=== PATIENT | female | born 1970 | race Caucasian/White ===

== ENCOUNTER → 2018-09-07 10:07 | Outpatient (CLI) | payer OTHER, SELFPAY ==
--- NOTE | 2018-09-07 | DI.MG.S_ITS ---
BILATERAL DIGITAL SCREENING MAMMOGRAM 3D/2D WITH CAD: 09/07/2018 CLINICAL: Routine screening. Comparison is made to exams dated: 11/23/2016 mammogram, 11/21/2015 mammogram, and 08/04/2012 mammogram - [facility]. The tissue of both breasts is heterogeneously dense. This may lower the sensitivity of mammography. Current study was also evaluated with a Computer Aided Detection (CAD) system. No significant masses, calcifications, or other findings are seen in either breast. There has been no significant interval change. IMPRESSION: NEGATIVE There is no mammographic evidence of malignancy. A 1 year screening mammogram is recommended. This exam was interpreted at Station ID: [id number]. NOTE: For mammograms, a report in lay terms will be sent to the patient. Approximately 15% of breast malignancies will not be visualized mammographically. In the management of a palpable breast mass, a negative mammogram must not discourage biopsy of a clinically suspicious lesion. Electronically Signed By: Sunita taylor/price:09/08/2018 12:23:13 letter sent: Normal Exam ACR BI-RADS Category 1: Negative 3341F
== END ==
PROVIDERS: Family Provider Family Medicine; PCP Family Medicine; Visit Provider Family Medicine
DX: Z12.31 Encounter for screening mammogram for malignant neoplasm of breast (principal)
CPT/HCPCS: 77063; 77067

== ENCOUNTER → 2018-10-05 08:22 | Outpatient (CLI) | payer OTHER, SELFPAY ==
[2018-10-05 08:42] LABS: Add Manual Diff / Slide Review NO; Basophils Absolute Auto 100 /uL (0-100); Eosinophils Absolute Auto 100 /uL (0-450); Eosinophils Percent Auto 1.8 % (2-4); Hematocrit 41.4 % (36-46); Hemoglobin 13.9 g/dL (12.0-16.0); Lymphocytes Absolute Auto 1700 /uL (1100-4500); Mean Corpuscular HGB Conc 33.6 % (30-36); Mean Corpuscular Hemoglobin 30.4 PG (26-34); Mean Corpuscular Volume 90.6 fL (80-100); Monocytes Absolute Auto 500 /uL (0-900); Neutrophils Absolute Auto 3500 /uL (1500-7000); Neutrophils Percent Auto 59.2 % (50-75); Platelet Count 303 X10^3/uL (150-400); Red Blood Cell Count 4.57 X10^6/uL (4.0-5.2); White Blood Cell Count 5.9 X10^3/uL (4.5-11.0)
[2018-10-05 09:07] LABS: Alanine Aminotransferase 21 IU/L (9-52); Albumin 4.4 g/dL (3.5-5.0); Albumin Globulin Ratio 1.5 (1.0-2.8); Alkaline Phosphatase 61 U/L (38-126); Aspartate Aminotransferase 22 IU/L (14-36); BUN Creatinine Ratio 15.7 (6-22); Blood Urea Nitrogen 11 mg/dL (7-17); Calcium 8.8 mg/dL (8.4-10.2); Carbon Dioxide 25 mmol/L (22-32); Chloride 102 mmol/L (98-107); Cholesterol 182 mg/dL (140-199); Estimated Glomerular Filt Rate > 60.0 mL/min (>60); Glucose 94 mg/dL (70-100); HDL Cholesterol 78 mg/dL (40-60); HEMOLYSIS < 15 (0-50); LDL Cholesterol Calculated 91 mg/dL (<100); Potassium 4.4 mmol/L (3.4-5.1); Sodium 137 mmol/L (137-145); Total Protein 7.4 g/dL (6.3-8.2); Triglycerides 67 mg/dL (35-150)
[2018-10-05 09:49] LABS: Thyroid Stimulating Hormone 2.01 uIU/mL (0.47-4.68)
== END ==
PROVIDERS: PCP Family Medicine; Visit Provider Family Medicine
DX: D25.9 Leiomyoma of uterus, unspecified (principal); Z13.0 Encounter for screening for diseases of the blood and blood-forming organs and certain disorders involving the immune mechanism; Z13.1 Encounter for screening for diabetes mellitus; Z13.220 Encounter for screening for lipoid disorders; Z13.29 Encounter for screening for other suspected endocrine disorder; Z00.00 Encounter for general adult medical examination without abnormal findings
CPT/HCPCS: 36415; 80053; 80061; 84443; 85025

== ENCOUNTER → 2020-08-14 17:21 | Outpatient (CLI) | payer OTHER, SELFPAY ==
--- NOTE | 2020-08-14 | DI.MG.S_ITS ---
BILATERAL DIGITAL SCREENING MAMMOGRAM 3D/2D WITH CAD: 08/14/2020 CLINICAL: Routine screening. Comparison is made to exams dated: 09/07/2018 mammogram, 11/23/2016 mammogram, and 11/21/2015 mammogram - [facility]. The tissue of both breasts is heterogeneously dense. This may lower the sensitivity of mammography. Current study was also evaluated with a Computer Aided Detection (CAD) system. No significant masses, calcifications, or other findings are seen in either breast. There has been no significant interval change. IMPRESSION: NEGATIVE There is no mammographic evidence of malignancy. A 1 year screening mammogram is recommended. This exam was interpreted at Station ID: [id number]. NOTE: For mammograms, a report in lay terms will be sent to the patient. Approximately 15% of breast malignancies will not be visualized mammographically. In the management of a palpable breast mass, a negative mammogram must not discourage biopsy of a clinically suspicious lesion. Electronically Signed By: Britton Valdez M.D., jr/price:08/15/2020 15:26:46 letter sent: Normal Exam ACR BI-RADS Category 1: Negative 3341F
== END ==
PROVIDERS: PCP Registered Nurse; Referring Provider Family Medicine; Visit Provider Family Medicine
DX: Z12.31 Encounter for screening mammogram for malignant neoplasm of breast (principal)
CPT/HCPCS: 77063; 77067

== ENCOUNTER → 2020-08-21 11:01 | Outpatient (CLI) | payer OTHER, SELFPAY ==
[2020-08-21 11:55] LABS: Add Manual Diff / Slide Review NO; Basophils Absolute Auto 100 /uL (0-100); Basophils Percent Auto 1.1 % (0-2); Eosinophils Absolute Auto 100 /uL (0-450); Eosinophils Percent Auto 1.3 % (2-4); Hemoglobin 13.2 g/dL (12.0-16.0); Lymphocytes Absolute Auto 1400 /uL (1100-4500); Lymphocytes Percent Auto 28.6 % (25-40); Mean Corpuscular HGB Conc 33.8 % (30-36); Mean Corpuscular Hemoglobin 30.9 PG (26-34); Mean Corpuscular Volume 91.3 fL (80-100); Monocytes Absolute Auto 500 /uL (0-900); Monocytes Percent Auto 10.6 % (3-14); Neutrophils Absolute Auto 2900 /uL (1500-7000); Neutrophils Percent Auto 58.4 % (50-75); Platelet Count 272 X10^3/uL (150-400); Red Blood Cell Count 4.27 X10^6/uL (4.0-5.2); Red Cell Distribution Width 13.1 % (11.6-14.8); White Blood Cell Count 4.9 X10^3/uL (4.5-11.0)
[2020-08-21 12:08] LABS: Alanine Aminotransferase 10 IU/L (<35); Albumin Globulin Ratio 1.3 (1.0-2.8); Alkaline Phosphatase 71 U/L (38-126); Aspartate Aminotransferase 26 IU/L (14-36); BUN Creatinine Ratio 14.3 (6-22); Bilirubin Total 0.7 mg/dL (0.2-1.3); Blood Urea Nitrogen 10 mg/dL (7-17); Carbon Dioxide 31 mmol/L (22-32); Chloride 103 mmol/L (98-107); Cholesterol 180 mg/dL (140-199); Estimated Glomerular Filt Rate > 60.0 mL/min (>60); Globulin 3.1 g/dL (1.7-4.1); Glucose 89 mg/dL (70-100); HDL Cholesterol 93 mg/dL (40-60); HEMOLYSIS < 15 (0-50); LDL Cholesterol Calculated 72 mg/dL (<100); Potassium 4.4 mmol/L (3.4-5.1); Sodium 135 mmol/L (137-145); Total Protein 7.1 g/dL (6.3-8.2); Triglycerides 76 mg/dL (35-150)
[2020-08-21 12:40] LABS: Thyroid Stimulating Hormone 2.61 uIU/mL (0.47-4.68)
== END ==
PROVIDERS: PCP Registered Nurse; Referring Provider Registered Nurse; Visit Provider Registered Nurse
DX: Z00.00 Encounter for general adult medical examination without abnormal findings (principal); D25.9 Leiomyoma of uterus, unspecified; R53.83 Other fatigue
CPT/HCPCS: 36415; 80053; 80061; 84443; 85025

== ENCOUNTER → 2021-04-28 | Outpatient (CLI) | payer OTHER, SELFPAY | PROVIDERS: PCP Registered Nurse; Referring Provider Internal Medicine; Visit Provider Internal Medicine | DX: Z23 Encounter for immunization (principal) | CPT/HCPCS: 90471; 90686 ==

== ENCOUNTER → 2022-12-19 10:50 | Outpatient (CLI) | payer OTHER, SELFPAY | PROVIDERS: Visit Provider Registered Nurse | DX: R10.9 Unspecified abdominal pain (principal) | CPT/HCPCS: 87077; 87086; 87186 ==

== ENCOUNTER → 2023-04-14 08:31 | Outpatient (CLI) | payer OTHER, SELFPAY ==
[2023-04-14 09:53] LABS: Hemoglobin A1C% w Est Avg Glu 5.1 % (4.0-6.0)
[2023-04-14 09:57] LABS: Alanine Aminotransferase 14 IU/L (<35); Albumin 4.2 g/dL (3.5-5.0); Albumin Globulin Ratio 1.5 (1.0-2.8); Alkaline Phosphatase 80 U/L (38-126); Aspartate Aminotransferase 26 IU/L (14-36); BUN Creatinine Ratio 17.6 (6-22); Bilirubin Total 0.6 mg/dL (0.2-1.3); Blood Urea Nitrogen 12 mg/dL (7-17); Calcium 9.5 mg/dL (8.4-10.2); Carbon Dioxide 26 mmol/L (22-32); Chloride 104 mmol/L (98-107); Cholesterol 176 mg/dL (140-199); Estimated Glomerular Filt Rate > 60 mL/min (>60); Globulin 2.8 g/dL (1.7-4.1); Glucose 97 mg/dL (70-100); HDL Cholesterol 79 mg/dL (40-60); HEMOLYSIS < 15 (0-50); LDL Cholesterol Calculated 83 mg/dL (<100); Potassium 4.7 mmol/L (3.4-5.1); Sodium 138 mmol/L (137-145); Triglycerides 70 mg/dL (35-150)
[2023-04-14 10:05] LABS: Add Manual Diff / Slide Review NO; Basophils Absolute Auto 0 /uL (0-100); Basophils Percent Auto 0.7 % (0-2); Eosinophils Absolute Auto 100 /uL (0-450); Eosinophils Percent Auto 1.5 % (2-4); Hematocrit 40.6 % (36-46); Hemoglobin 13.5 g/dL (12.0-16.0); Lymphocytes Absolute Auto 1700 /uL (1100-4500); Lymphocytes Percent Auto 31.6 % (25-40); Mean Corpuscular HGB Conc 33.2 % (30-36); Mean Corpuscular Hemoglobin 30.2 PG (26-34); Mean Corpuscular Volume 90.9 fL (80-100); Monocytes Absolute Auto 500 /uL (0-900); Monocytes Percent Auto 9.1 % (3-14); Neutrophils Absolute Auto 3000 /uL (1500-7000); Neutrophils Percent Auto 57.1 % (50-75); Platelet Count 326 X10^3/uL (150-400); Red Blood Cell Count 4.47 X10^6/uL (4.0-5.2); Red Cell Distribution Width 13.3 % (11.6-14.8); White Blood Cell Count 5.3 X10^3/uL (4.5-11.0)
[2023-04-14 10:20] LABS: Vitamin D 25 Hydroxy (D3) 35.2 ng/mL (30.0-100.0)
[2023-04-14 10:25] LABS: TSH w/ Reflex to FT4 2.46 uIU/mL (0.47-4.68)
[2023-04-14 16:18] LABS: HIV 1 & 2 Ab/Ag 4th Gen Combo NEGATIVE (NEGATIVE); Hep C Virus Ab w/Reflex Quant NEGATIVE s/c (NEGATIVE)
== END ==
PROVIDERS: PCP Family Medicine; Referring Provider Family Medicine; Visit Provider Family Medicine
DX: Z00.00 Encounter for general adult medical examination without abnormal findings (principal); Z11.59 Encounter for screening for other viral diseases; R63.5 Abnormal weight gain; Z11.4 Encounter for screening for human immunodeficiency virus [HIV]
CPT/HCPCS: 36415; 80053; 80061; 82306; 83036; 84443; 85025; 86803; 87389

== ENCOUNTER → 2023-04-20 19:51 | Outpatient (CLI) | payer OTHER, SELFPAY | PROVIDERS: PCP Family Medicine; Referring Provider Family Medicine; Visit Provider Family Medicine | DX: Z23 Encounter for immunization (principal) | CPT/HCPCS: 90471; 90686 ==

== ENCOUNTER 2023-04-23 09:55 | Emergency (ER) | payer OTHER, SELFPAY ==
[2023-04-23] VITALS (39 sets, daily range): BP systolic 135–199; BP diastolic 76–96; PULSE 60–85; RESP 14–34; TEMP 36.7; O2SAT 95–100; BMI 27.1
--- NOTE | 2023-04-23 10:12 | DI.RAD.S_ITS ---
PROCEDURE: XR CHEST 1V INDICATIONS: chest pain TECHNIQUE: One view of the chest was acquired. COMPARISON: None. FINDINGS: Surgical changes and devices: None. Lungs and pleura: Lungs are clear. No pleural effusions or pneumothorax. Mediastinum: The cardiac contours are within normal limits. The aorta demonstrates calcification and tortuosity. Bones and chest wall: No suspicious bony lesions. Overlying soft tissues appear unremarkable. IMPRESSION: Portable chest within normal limits for age. Dictated by: Cristino Silva M.D. on 04/23/2023 at 9:29 Approved by: Cristino Silva M.D. on 04/23/2023 at 9:29
[2023-04-23] MEDS: ASPIRIN 81 MG CHEW TAB 324 MG PO (10:20)
[2023-04-23 10:57] LABS: Add Manual Diff / Slide Review NO; Basophils Absolute Auto 0 /uL (0-100); Basophils Percent Auto 0.8 % (0-2); Eosinophils Absolute Auto 0 /uL (0-450); Eosinophils Percent Auto 0.5 % (2-4); Hematocrit 40.8 % (36-46); Hemoglobin 13.7 g/dL (12.0-16.0); Lymphocytes Absolute Auto 1300 /uL (1100-4500); Lymphocytes Percent Auto 23.7 % (25-40); Mean Corpuscular HGB Conc 33.5 % (30-36); Mean Corpuscular Hemoglobin 30.6 PG (26-34); Mean Corpuscular Volume 91.3 fL (80-100); Monocytes Absolute Auto 600 /uL (0-900); Monocytes Percent Auto 10.5 % (3-14); Neutrophils Absolute Auto 3500 /uL (1500-7000); Neutrophils Percent Auto 64.5 % (50-75); Platelet Count 303 X10^3/uL (150-400); Red Blood Cell Count 4.46 X10^6/uL (4.0-5.2); Red Cell Distribution Width 13.1 % (11.6-14.8); White Blood Cell Count 5.4 X10^3/uL (4.5-11.0)
[2023-04-23 11:02] LABS: INR 0.9 (0.9-1.3); Prothrombin Time 10.4 SECONDS (10.1-12.7)
[2023-04-23 11:04] LABS: PTT Partial Thromboplastin Tim 31 SECONDS (26-36)
[2023-04-23 11:07] LABS: Alanine Aminotransferase 14 IU/L (<35); Albumin 4.4 g/dL (3.5-5.0); Albumin Globulin Ratio 1.4 (1.0-2.8); Alkaline Phosphatase 82 U/L (38-126); Aspartate Aminotransferase 27 IU/L (14-36); Bilirubin Total 0.4 mg/dL (0.2-1.3); Blood Urea Nitrogen 11 mg/dL (7-17); Calcium 9.5 mg/dL (8.4-10.2); Carbon Dioxide 27 mmol/L (22-32); Chloride 104 mmol/L (98-107); Creatine Kinase 89 U/L (30-135); Estimated Glomerular Filt Rate > 60 mL/min (>60); Globulin 3.1 g/dL (1.7-4.1); Glucose 138 mg/dL (70-100); HEMOLYSIS < 15 (0-50); Lipase 65 U/L (23-300); Magnesium 2.2 mg/dL (1.6-2.3); Potassium 4.1 mmol/L (3.4-5.1); Sodium 137 mmol/L (137-145); Total Protein 7.5 g/dL (6.3-8.2)
[2023-04-23 11:09] LABS: D Dimer 344 ng/ml (<500)
[2023-04-23 11:18] LABS: Troponin I < 0.012 ng/mL (0.01-0.034)
[2023-04-23 14:20] LABS: Troponin I 0.493 ng/mL (0.01-0.034)
--- NOTE | 2023-04-23 14:29 | ED.CHESTPAIN ---
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 She is never had similar findings there is no cardiac history in her family, typically her blood pressure is quite low she is on no medication and exercises regularly has not noticed any chest pain or exertional dyspnea recently. No nausea, vomiting or diarrhea Related Data Home Medications Medication Instructions Recorded Confirmed No Known Home Medications 04/23/23 04/23/23 Allergies Allergy/AdvReac Type Severity Reaction Status Date / Time No Known Drug Allergies Allergy Verified 04/23/23 10:15 Review of Systems Review of Systems Narrative: Pertinent positive and negative findings as per HPI Patient History Medical History Vaginal delivery Family History Father Age: 83 High cholesterol Grandfather Colon cancer Grandmother Cancer Mother Age: 81 High cholesterol Grandfather Heart disease Grandmother Stroke Social History Smoking Status: Never smoker second hand exposure: No alcohol intake: current (2x per week) substance use type: does not use Smoking Status: Never smoker alcohol intake frequency: 0-2 drinks per day Substance Use Type: does not use Exam Initial Vital Signs Initial Vital Signs: Vital Signs Temperature 98.1 F 04/23/23 10:05 Pulse Rate 76 04/23/23 10:05 Respiratory Rate 14 04/23/23 10:05 Blood Pressure 199/94 H 04/23/23 10:05 Pulse Oximetry 99 04/23/23 10:05 Oxygen Delivery Method Room Air 04/23/23 10:05 General: Healthy appearing, in no acute distress. Able to give a complete and coherent history. Well-nourished well-developed HEENT: Moist mucous membranes, normal sclera with reactive pupils, Respiratory: Lungs are clear to auscultation, no wheezing no rales no rhonchi. Full and symmetrical air movement Cardiac: Regular rate and rhythm no murmurs no bruits Abdomen: Soft, nontender, good bowel tones, no flank pain Skin: Warm and dry, no rashes Neurologic: Grossly neurologically intact with no obvious asymmetries or abnormalities Extremities: No trauma, well perfused Psych: Cooperative, appropriate insight and affect Course Orders Ordered: ED Orders 04/23/23 10:12 XR chest 1V Stat EKG-12 Lead Stat 04/23/23 10:53 Complete Blood Count AUTO DIFF Stat Comprehensive Metabolic Panel Stat D Dimer Stat Lipase Stat Magnesium Stat PTT Partial Thromboplastin Ulices Stat Prothrombin Time INR Stat Troponin & CK Cardiac Panel Stat 04/23/23 13:00 EKG-12 Lead Stat 04/23/23 13:45 Troponin I Stat 04/23/23 14:28 COVID19 -Nasal RAPID Stat 04/23/23 16:54 EKG-12 Lead Stat 04/23/23 17:00 Trop I [Troponin I] Stat 04/23/23 21:00 PTT Partial Thromboplastin Ulices Stat Heparin Sodium/Dextrose (Heparin Drip) 25,000 unit in 500 mls @ 16.112 mls/hr IV CONT TOY; Protocol Last Admin: 04/23/23 15:10 Dose: 12 units/kg/hr, 16.112 mls/hr Documented By: PATEL Co-signed By: RAJ Nitroglycerin (Nitroglycerin) 50 mg in 250 mls @ 1.5 mls/hr IV TITRATE TOY; Protocol Last Titration: 04/23/23 16:35 Dose: 15 mcg/min, 4.5 mls/hr Documented By: Titration: 04/23/23 15:49 Dose: 10 mcg/min, 3 mls/hr Documented By: Admin: 04/23/23 15:29 Dose: 5 mcg/min, 1.5 mls/hr Documented By: JAKUB Morphine Sulfate (Morphine 2 Mg/Ml Inj) 2 mg IV Q2HR PRN PRN Reason: Pain, Moderate (4-6) Last Admin: 04/23/23 16:50 Dose: 2 mg Documented By: PATEL Discontinued Medications Acetaminophen (Acetaminophen 325 Mg Tablet) 650 mg PO NOW ONE Stop: 04/23/23 16:34 Last Admin: 04/23/23 16:49 Dose: 650 mg Documented By: PATEL Aspirin (Aspirin 81 Mg Chew Tab) 324 mg PO NOW ONE Stop: 04/23/23 10:13 Last Admin: 04/23/23 10:20 Dose: 324 mg Documented By: JAKUB Heparin Sodium (Porcine) (Heparin 5,000 Unit/Ml Vial) 5,000 unit IV NOW ONE Stop: 04/23/23 14:30 Last Admin: 04/23/23 15:20 Dose: Not Given Documented By: JAKUB Heparin Sodium (Porcine) (Heparin 5,000 Unit/Ml Vial) 4,000 unit IV NOW ONE Stop: 04/23/23 15:02 Last Admin: 04/23/23 15:11 Dose: 4,000 unit Documented By: PATEL Nitroglycerin (Nitroglycerin 0.4 Mg Sl Tab) 0.4 mg SL [id number] PRN PRN Reason: Chest Pain Nitroglycerin (Nitroglycerin Oint 1 Inch/Gm Oint...G.) 0.5 inch TOP NOW ONE Stop: 04/23/23 14:44 Last Admin: 04/23/23 15:12 Dose: 0.5 inch Documented By: PATEL Vital Signs Vital signs: Vital Signs - 8 hr 04/23/23 10:05 04/23/23 10:10 04/23/23 10:15 Temperature 98.1 F Pulse Rate 76 73 Respiratory Rate 14 21 Blood Pressure 199/94 H 189/86 H Pulse Oximetry 99 100 Oxygen Delivery Method Room Air 04/23/23 10:15 04/23/23 10:30 04/23/23 10:30 Temperature Pulse Rate 76 78 Respiratory Rate 21 20 Blood Pressure 170/83 H Pulse Oximetry 100 99 Oxygen Delivery Method 04/23/23 10:45 04/23/23 10:58 04/23/23 10:58 Temperature Pulse Rate 78 78 Respiratory Rate 34 H 28 H Blood Pressure 163/96 H Pulse Oximetry 100 100 Oxygen Delivery Method 04/23/23 11:00 04/23/23 11:00 04/23/23 11:15 Temperature Pulse Rate 77 76 Respiratory Rate 19 19 Blood Pressure 150/92 H Pulse Oximetry 100 99 Oxygen Delivery Method Room Air 04/23/23 11:15 04/23/23 11:30 04/23/23 11:30 Temperature Pulse Rate 76 Respiratory Rate 18 Blood Pressure 153/86 H 153/87 H Pulse Oximetry 99 Oxygen Delivery Method 04/23/23 11:45 04/23/23 11:45 04/23/23 12:00 Temperature Pulse Rate 72 Respiratory Rate 16 Blood Pressure 147/85 H 151/86 H Pulse Oximetry 99 Oxygen Delivery Method 04/23/23 12:00 04/23/23 12:15 04/23/23 12:15 Temperature Pulse Rate 68 71 Respiratory Rate 17 19 Blood Pressure 155/81 H Pulse Oximetry 99 98 Oxygen Delivery Method Room Air Room Air 04/23/23 12:30 04/23/23 12:30 04/23/23 12:45 Temperature Pulse Rate 64 Respiratory Rate 17 Blood Pressure 155/84 H 139/80 Pulse Oximetry 96 Oxygen Delivery Method 04/23/23 12:45 04/23/23 13:00 04/23/23 13:00 Temperature Pulse Rate 60 65 Respiratory Rate 14 14 Blood Pressure 146/85 H Pulse Oximetry 98 99 Oxygen Delivery Method Room Air 04/23/23 13:15 04/23/23 13:15 04/23/23 13:30 Temperature Pulse Rate 64 Respiratory Rate 15 Blood Pressure 145/85 H 135/79 Pulse Oximetry 98 Oxygen Delivery Method 04/23/23 13:30 04/23/23 13:45 04/23/23 13:45 Temperature Pulse Rate 64 73 Respiratory Rate 17 20 Blood Pressure 142/84 H Pulse Oximetry 96 97 Oxygen Delivery Method 04/23/23 14:00 04/23/23 14:00 04/23/23 14:15 Temperature Pulse Rate 66 Respiratory Rate 16 Blood Pressure 155/88 H 151/85 H Pulse Oximetry 99 Oxygen Delivery Method 04/23/23 14:15 04/23/23 14:30 04/23/23 14:30 Temperature Pulse Rate 69 80 Respiratory Rate 17 31 H Blood Pressure 155/91 H Pulse Oximetry 99 99 Oxygen Delivery Method Room Air 04/23/23 14:45 04/23/23 14:45 04/23/23 15:00 Temperature Pulse Rate 83 Respiratory Rate 18 Blood Pressure 155/84 H 157/77 H Pulse Oximetry 97 Oxygen Delivery Method Room Air 04/23/23 15:00 04/23/23 15:12 04/23/23 15:15 Temperature Pulse Rate 83 77 77 Respiratory Rate 17 24 Blood Pressure 157/77 H Pulse Oximetry 98 Oxygen Delivery Method 04/23/23 15:16 04/23/23 15:16 04/23/23 15:30 Temperature Pulse Rate 83 Respiratory Rate 31 H Blood Pressure 155/89 H 156/85 H Pulse Oximetry 100 Oxygen Delivery Method 04/23/23 15:30 04/23/23 15:45 04/23/23 15:45 Temperature Pulse Rate 74 77 Respiratory Rate 17 22 Blood Pressure 156/87 H Pulse Oximetry 97 97 Oxygen Delivery Method 04/23/23 15:50 04/23/23 16:00 04/23/23 16:00 Temperature Pulse Rate 82 73 Respiratory Rate 14 16 Blood Pressure 159/87 H Pulse Oximetry 98 Oxygen Delivery Method Room Air 04/23/23 16:15 04/23/23 16:15 04/23/23 16:30 Temperature Pulse Rate 81 82 Respiratory Rate 18 18 Blood Pressure 149/76 H Pulse Oximetry 97 95 Oxygen Delivery Method Room Air Room Air 04/23/23 16:30 04/23/23 16:45 04/23/23 16:45 Temperature Pulse Rate 85 Respiratory Rate 18 Blood Pressure 146/79 H 145/78 H Pulse Oximetry 95 Oxygen Delivery Method Room Air 04/23/23 17:00 04/23/23 17:15 04/23/23 17:30 Temperature Pulse Rate 81 82 79 Respiratory Rate 18 Blood Pressure Pulse Oximetry 98 99 98 Oxygen Delivery Method MDM - Chest Pain Lab Data 04/23/23 10:53 04/23/23 10:53 Labs: Lab Results 04/23/23 04/23/23 04/23/23 Range/Units 10:53 13:45 14:28 WBC 5.4 (4.5-11.0) X10^3/uL RBC 4.46 (4.0-5.2) X10^6/uL Hgb 13.7 (12.0-16.0) g/dL Hct 40.8 (36-46) % MCV 91.3 (80-100) fL MCH 30.6 (26-34) PG MCHC 33.5 (30-36) % RDW 13.1 (11.6-14.8) % Plt Count 303 (150-400) X10^3/uL Neut % (Auto) 64.5 (50-75) % Lymph % (Auto) 23.7 L (25-40) % Callaway % (Auto) 10.5 (3-14) % Eos % (Auto) 0.5 L (2-4) % Baso % (Auto) 0.8 (0-2) % Neut # (Auto) 3500 (6129-5305) /uL Lymph # (Auto) 1300 (9587-5990) /uL Callaway # (Auto) 600 (0-900) /uL Eos # (Auto) 0 (0-450) /uL Baso # (Auto) 0 (0-100) /uL PT 10.4 (10.1-12.7) SECONDS INR 0.9 (0.9-1.3) APTT 31 (26-36) SECONDS D-Dimer 344 (<500) ng/ml Sodium 137 (137-145) mmol/L Potassium 4.1 (3.4-5.1) mmol/L Chloride 104 (98-107) mmol/L Carbon Dioxide 27 (22-32) mmol/L BUN 11 (7-17) mg/dL Creatinine 0.61 (0.52-1.04) mg/dL Estimated GFR > 60 (>60) mL/min BUN/Creatinine Ratio 18.0 (6-22) Glucose 138 H (70-100) mg/dL Calcium 9.5 (8.4-10.2) mg/dL Magnesium 2.2 (1.6-2.3) mg/dL Total Bilirubin 0.4 (0.2-1.3) mg/dL AST 27 (14-36) IU/L ALT 14 (<35) IU/L Alkaline Phosphatase 82 (38-126) U/L Total Creatine Kinase 89 (30-135) U/L Troponin I < 0.012 0.493 H* (0.01-0.034) ng/mL Total Protein 7.5 (6.3-8.2) g/dL Albumin 4.4 (3.5-5.0) g/dL Globulin 3.1 (1.7-4.1) g/dL Albumin/Globulin Ratio 1.4 (1.0-2.8) Lipase 65 (23-300) U/L SARS-CoV-2 (PCR) Negative (Negative) 04/23/23 Range/Units 17:00 WBC (4.5-11.0) X10^3/uL RBC (4.0-5.2) X10^6/uL Hgb (12.0-16.0) g/dL Hct (36-46) % MCV (80-100) fL MCH (26-34) PG MCHC (30-36) % RDW (11.6-14.8) % Plt Count (150-400) X10^3/uL Neut % (Auto) (50-75) % Lymph % (Auto) (25-40) % Callaway % (Auto) (3-14) % Eos % (Auto) (2-4) % Baso % (Auto) (0-2) % Neut # (Auto) (9195-4950) /uL Lymph # (Auto) (5741-2549) /uL Callaway # (Auto) (0-900) /uL Eos # (Auto) (0-450) /uL Baso # (Auto) (0-100) /uL PT (10.1-12.7) SECONDS INR (0.9-1.3) APTT (26-36) SECONDS D-Dimer (<500) ng/ml Sodium (137-145) mmol/L Potassium (3.4-5.1) mmol/L Chloride (98-107) mmol/L Carbon Dioxide (22-32) mmol/L BUN (7-17) mg/dL Creatinine (0.52-1.04) mg/dL Estimated GFR (>60) mL/min BUN/Creatinine Ratio (6-22) Glucose (70-100) mg/dL Calcium (8.4-10.2) mg/dL Magnesium (1.6-2.3) mg/dL Total Bilirubin (0.2-1.3) mg/dL AST (14-36) IU/L ALT (<35) IU/L Alkaline Phosphatase (38-126) U/L Total Creatine Kinase (30-135) U/L Troponin I 2.700 H* (0.01-0.034) ng/mL Total Protein (6.3-8.2) g/dL Albumin (3.5-5.0) g/dL Globulin (1.7-4.1) g/dL Albumin/Globulin Ratio (1.0-2.8) Lipase (23-300) U/L SARS-CoV-2 (PCR) (Negative) MDM Narrative Medical decision making narrative: CC: Acute chest pain Complicating co-morbidities: None, no medications otherwise healthy with regular exercise Data collected from: patient, Differential considered:Musculoskeletal pain, pleurisy, acute coronary syndrome Exam documented above, pertinent findings include: Completely benign exam. Chest pain is not reproducible with palpation Lab Test results independently reviewed as above. Pertinent findings: D-dimer is unremarkable PT and PTT your unremarkable CBC is unremarkable Chemistries are reassuring Lipase is unremarkable Initial troponin is undetectable, repeat troponin is elevated at 0.493 Independently reviewed EKG Sinus rhythm at a rate of 68 nonspecific STT wave changes, no acute ischemia, leftward axis Repeat EKG is showing some evolving changes with flipped T-waves in lead 3 and V3 through 6. This is changed from the initial EKG Imaging studies independently reviewed: Chest x-ray has no significant abnormalities Treatments:nitro sl, heparin IV, nitro paste, IV nitro Re-evaluations:3pm + trop and evolving EKG changes are discussed with the patient Discussion: Otherwise healthy 53-year-old woman with acute chest pain while at work this morning. Initial EKG with mild STT wave changes but no acute ischemia initial troponin is unremarkable however repeat troponin is significantly elevated at 0.493. Heparin is started and because she is still having some residual pain nitro paste is placed. She was given aspirin with initial presentation. Of note is the Tdap and flu immunizations 48 hours ago. Care is reviewed with admitting hospitalist Dr. Pepe Nielsen and patient will be transferred around 6:00 p.m. this evening. Third troponin returned at 2.5. Dr. Cantu is updated. Patient is transferred to [facility] on 15 mics of nitroglycerin, pain-free after a single dose of morphine and heparin drip running. Critical Care Time Critical Care Time Critical Care Time: Yes Total Critical Care Time: 36 Attestation: Critical care time is separate from other billable procedures. There is a high probability of a significant, sudden or life-threatening deterioration that requires my full and direct attention, intervention and personal management. This critical care time includes consultation with family and other consulting doctors, review of records, and interpretation of data from labs, EKGs and imaging as well as managements of escalating chest pain with IV heparin and IV nitroglycerin Discharge Plan Departure Patient Disposition: [facility] Clinical Impression: Unstable angina pectoris Prescriptions: No Action No Known Home Medications Referrals: Britton Lea MD [Primary Care Provider] -
[2023-04-23 14:46] LABS: COVID19 -Nasal RAPID Negative (Negative)
[2023-04-23] MEDS: HEPARIN DRIP 25,000 UNIT/500 ML IV.SOLN 16.112 UNIT IV (15:10)
[2023-04-23] MEDS: HEPARIN 5,000 UNIT/ML VIAL 4000 UNIT IV (15:11)
[2023-04-23] MEDS: NITROGLYCERIN OINT 1 INCH/GM OINT...G. 0.5 INCH TOP (15:12)
[2023-04-23] MEDS: NITROGLYCERIN 50 MG/250 ML INFUS..BTL IV (15:29)
--- NOTE | 2023-04-23 15:55 | PC.NURSE ---
Accepted to [facility]: Pt agrees w/ plan of care.
[2023-04-23] MEDS: ACETAMINOPHEN 325 MG TABLET 650 MG PO (16:49)
[2023-04-23] MEDS: MORPHINE 2 MG/ML INJ IV (16:50)
[2023-04-23 17:57] LABS: Creatine Kinase 310 U/L (30-135)
--- NOTE | 2023-04-23 18:06 | PC.NURSE ---
Heparin continued at 16ml/hr and Nitro Continued at 15mkg/min in transport with [facility].
== END 2023-04-23 18:15 | disposition short-term general hospital (02) ==
PROVIDERS: Emergency Provider Emergency Medicine; PCP Family Medicine
DX: I20.0 Unstable angina (principal); R07.9 Chest pain, unspecified; Z20.822 Contact with and (suspected) exposure to COVID-19
CPT/HCPCS: 36415; 71045; 80053; 82550; 83690; 83735; 84484; 85025; 85379; 85610; 85730; 87635; 93005; 96365; 96366; 96368; 96375; 99285; 99291; C9803; J1644; J2270

== ENCOUNTER → 2023-05-16 15:42 | Outpatient (CLI) | payer OTHER, SELFPAY ==
--- NOTE | 2023-05-16 15:43 | DI.MG.S_ITS ---
BILATERAL DIGITAL SCREENING MAMMOGRAM 3D/2D WITH CAD: 05/16/2023 CLINICAL: Routine screening. Comparison is made to exams dated: 08/14/2020 mammogram, 09/07/2018 mammogram, and 11/23/2016 mammogram - [facility]. Both breasts are heterogeneously dense, which may obscure small masses (category c / 51-75% glandular tissue). Current study was also evaluated with a Computer Aided Detection (CAD) system. No significant masses, calcifications, or other findings are seen in either breast. There has been no significant interval change. IMPRESSION: NEGATIVE There is no mammographic evidence of malignancy. A 1 year screening mammogram is recommended. Based on the Tyrer Cuzick model (a risk assessment model) the patient's lifetime risk is 12.6% and her 10 year risk is 3.3%. According to the ACR, ACS, and NCCN guidelines, an annual breast MRI exam along with mammogram is recommended if the patient's lifetime risk is 20% or greater. This exam was interpreted at Station ID: [id number]. NOTE: For mammograms, a report in lay terms will be sent to the patient. Approximately 15% of breast malignancies will not be visualized mammographically. In the management of a palpable breast mass, a negative mammogram must not discourage biopsy of a clinically suspicious lesion. Electronically Signed By: Paul krueger/price:05/17/2023 09:16:28 letter sent: Normal Exam ACR BI-RADS Category 1: Negative 3341F
== END ==
PROVIDERS: PCP Family Medicine; Referring Provider Family Medicine; Visit Provider Family Medicine
DX: Z12.31 Encounter for screening mammogram for malignant neoplasm of breast (principal)
CPT/HCPCS: 77063; 77067

== ENCOUNTER 2023-07-05 09:55 | Day surgery (SDC) | payer OTHER, SELFPAY ==
--- NOTE | 2023-07-05 | PATH_ITS ---
[facility] Accession Number: [id number] No. of containers..02 Tissue . 01 Material submitted: . PART A: colon - SIGMOID POLYP PART B: colon - DESCENDING COLON POLYP . 01 Diagnosis: A. COLON, SIGMOID POLYP, BIOPSY: - HYPERPLASTIC POLYP, AND BENIGN LYMPHOID AGGREGATE. - NEGATIVE FOR DYSPLASIA OR MALIGNANCY. -- B. COLON, DESCENDING POLYP, BIOPSY: - HYPERPLASTIC POLYP. - NEGATIVE FOR DYSPLASIA OR MALIGNANCY. TXN 07/14/2023 1334 Local . 01 Electronically signed: . Tawcarolee Morris MD, Pathologist NPI- [id number] . 01 Gross description: . Part A: SIGMOID POLYP: Received in formalin is 2 fragment(s) of mosquera, soft tissue measuring 0.5 x 0.2 x 0.1 cm to 0.4 x 0.2 x 0.1 cm submitted entirely in 1 cassette(s) Part B: DESCENDING COLON POLYP: Received in formalin is 1 fragment(s) of mosquera, soft tissue measuring 0.3 x 0.2 x 0.1 cm submitted entirely in 1 cassette(s) /AAY 07/07/2023 0116 Local . 01 Pathologist provided ICD-10: Z12.11 . 01 CPT . 855127, [id number] Specimen Comment: A courtesy copy of this report has been sent to [phone] Performed at: 01 [facility] [address] [place] [address], [place], [place] [id number] MD Tommy Gong MD Phone: [phone]
--- NOTE | 2023-07-05 10:29 | P.HP_ITS ---
History of Present Illness History of Present Illness Date Patient Seen: 07/05/23 Time Patient Seen: 10:29 Chief complaint: Screening Colonoscopy Narrative: 53-year-old woman here for screening colonoscopy. No previous colonoscopy. No family history of intestinal malignancy. She had a NSTEMI 2 months ago did not receive a stent is on Plavix and beta blockade. No chest pain or shortness of breath with exertion. No abdominal concerns including pain, unintentional weight loss blood per rectum. [facility] Medical History Chicken pox (~1975) NSTEMI (non-ST elevated myocardial infarction) Vaginal delivery Family History (Updated 06/20/23 @ 19:55 by Sera Singer) Father Age: 83 High cholesterol Hypertension Grandfather Stomach cancer Grandmother Colon cancer Mother Age: 81 High cholesterol Parkinson's disease Grandfather Heart disease Grandmother Stroke Social History Smoking Status: Never smoker second hand exposure: No alcohol intake: current (2x per week) substance use type: does not use Meds Home Medications and Allergies Home Medications Medication Instructions Recorded Confirmed Type atorvastatin 40 mg tablet 40 mg PO DAILY #30 tabs 05/03/23 06/21/23 Rx clopidogrel 75 mg tablet 75 mg PO DAILY #30 tabs 05/03/23 06/21/23 Rx sodium,potassium,mag sulfates 17.5 See Rx Instructions PO .COMPLEX 06/15/23 06/21/23 Rx gram-3.13 gram-1.6 gram oral soln #354 mL (Suprep Bowel Prep Kit) metoprolol tartrate 25 mg tablet 25 mg PO DAILY #30 tabs 06/21/23 Rx Allergies Allergy/AdvReac Type Severity Reaction Status Date / Time No Known Drug Allergies Allergy Verified 06/21/23 09:35 Exam Narrative Exam Narrative: General adult woman alert oriented no acute distress Chest nonlabored respiration Extremities warm well perfused Assessment & Plan Assessment & Plan narrative: The patient requires colorectal screening and colonoscopy is recommended. Technical details were discussed. Risks, benefits, alternatives explained. She had an NSTEMI 2 months ago and is in good functional status. Discussed with an esthesia according to their perioperative guidelines it is appropriate to proceed given that it is now 60 days since her event and she remains asymptomatic. In general my preference would be to wait 6 months prior to proceeding however she is already completed the colonoscopy prep for today. Following a discussion with anesthesia and the patient she elects to proceed. Risks including but not limited to myocardial infarction, aspiration, bleeding, pain, missed lesion, incomplete examination, need for further radiographic studies, colonic perforation, and need for major abdominal surgery were discussed. All questions were answered to their satisfaction, and they are in agreement with this plan.
[2023-07-05 10:39] VITALS: BP 144/77; PULSE 72; RESP 18; TEMP 36.4; O2SAT 100; BMI 25.6
[2023-07-05] MEDS: ONDANSETRON 4 MG/2 ML INJ IV (10:57)
[2023-07-05] MEDS: LACTATED RINGERS 1,000 ML 42 ML IV (10:59)
[2023-07-05 11:24] VITALS: BP 99/65; PULSE 72; RESP 16; TEMP 36.2; O2SAT 99
[2023-07-05 11:29] VITALS: BP 92/66; PULSE 72; RESP 16; O2SAT 99
--- NOTE | 2023-07-05 11:33 | P.OP.COLON_ITS ---
Operative Date/Time/Diagnoses Date of procedure: 07/05/23 Time of procedure: 11:33 Pre-op diagnosis: Colorectal screening Post-op diagnosis: other (Colonic polyps x3) Procedure & Clinicians Study performed: Colonoscopy and polypectomy Same procedure as scheduled: Yes Indications: Colorectal screening Surgeon: Hunter Caldera Procedure Notes Procedure in detail: The history and physical was performed/updated and the patient is ASA class is 4. The procedure was discussed in detail with the patient. Potential risks complications including infection, bleeding, missed diagnosis, perforation, need for surgery, and were explained. Their questions were answered and informed consent was obtained. Patient was brought to the procedure room and placed standard monitoring equipment. The patient's vital signs were monitored continuously throughout the entire procedure. Prior to starting time-out was performed. The patient was placed in the left lateral recumbent position. Procedural sedation was administered by anesthesia. Examination began with a thorough inspection of the perianal area there was no evidence of fissures, fistulae, external hemorrhoids or cutaneous malignancy. The colonoscopy scope was then placed into the anal canal and was advanced to the cecum, which was identified by the ileocecal valve, the appendiceal orifice and the confluence of the taenia. The scope was then slowly withdrawn examining colon thoroughly in all directions, irrigating it of any residual stool. The scope was retroflexed within the rectum The patient tolerated the procedure well. They will be discharged once criteria are met. The prep was of good/excellent quality. The withdrawl time was 6 minutes. FINDINGS * Sigmoid colon. 3 mm polyps x2 removed with biopsy forceps. * Descending colon 3 mm polyp removed with biopsy forceps Specimen(s): other (Sigmoid polyps x2, descending colon polyp) Complications: none Impression: Colonic polyps x3 Post-procedure Plan for aftercare: Follow-up is dependent on pathology findings Disposition: same day surgery
[2023-07-05 11:34] VITALS: BP 106/73; PULSE 70; RESP 18; O2SAT 98
[2023-07-05 11:36] VITALS: BP 119/77; PULSE 72; RESP 16; TEMP 36.3; O2SAT 100
--- NOTE | 2023-07-05 11:48 | SUR.PHASEII ---
pt given discharge instructions pt states she understands discharge instructions.
== END 2023-07-05 11:54 | disposition home or self-care (01) ==
PROVIDERS: Referring Provider Surgery; Visit Provider Surgery
PROC: 0DJD8ZZ Inspection of Lower Intestinal Tract, Via Natural or Artificial Opening Endoscopic (ICD-10-PCS; CPT 45378; principal; 2023-07-05 11:00)
DX: Z12.11 Encounter for screening for malignant neoplasm of colon (principal); I25.2 Old myocardial infarction; K63.5 Polyp of colon
CPT/HCPCS: 45380; 93005; 93010; J2405

== ENCOUNTER → 2024-04-25 17:38 | Outpatient (CLI) | payer OTHER, SELFPAY | PROVIDERS: PCP Family Medicine; Referring Provider Internal Medicine; Visit Provider Internal Medicine | DX: Z23 Encounter for immunization (principal) | CPT/HCPCS: 90471; 90656 ==

== ENCOUNTER → 2024-05-03 08:07 | Outpatient (CLI) | payer OTHER, SELFPAY ==
[2024-05-03 09:43] LABS: Add Manual Diff / Slide Review NO; Basophils Absolute Auto 0 /uL (0-100); Basophils Percent Auto 0.9 % (0-2); Eosinophils Absolute Auto 100 /uL (0-450); Eosinophils Percent Auto 1.6 % (2-4); Hematocrit 41.5 % (36-46); Hemoglobin 13.9 g/dL (12.0-16.0); Lymphocytes Absolute Auto 1500 /uL (1100-4500); Lymphocytes Percent Auto 28.8 % (25-40); Mean Corpuscular HGB Conc 33.5 % (30-36); Mean Corpuscular Hemoglobin 30.8 PG (26-34); Mean Corpuscular Volume 91.9 fL (80-100); Monocytes Absolute Auto 400 /uL (0-900); Monocytes Percent Auto 8.7 % (3-14); Neutrophils Absolute Auto 3000 /uL (1500-7000); Platelet Count 378 X10^3/uL (150-400); Red Blood Cell Count 4.51 X10^6/uL (4.0-5.2); Red Cell Distribution Width 13.3 % (11.6-14.8)
[2024-05-03 10:13] LABS: Alanine Aminotransferase 14 IU/L (<35); Albumin Globulin Ratio 1.4 (1.0-2.8); Alkaline Phosphatase 78 U/L (38-126); Aspartate Aminotransferase 30 IU/L (14-36); BUN Creatinine Ratio 18.8 (6-22); Bilirubin Total 0.6 mg/dL (0.2-1.3); Blood Urea Nitrogen 13 mg/dL (7-17); Calcium 9.3 mg/dL (8.4-10.2); Carbon Dioxide 26 mmol/L (22-32); Chloride 106 mmol/L (98-107); Cholesterol 189 mg/dL (140-199); Estimated Glomerular Filt Rate > 60 mL/min (>60); Globulin 2.9 g/dL (1.7-4.1); Glucose 90 mg/dL (70-100); HDL Cholesterol 71 mg/dL (40-60); HEMOLYSIS < 15 (0-50); LDL Cholesterol Calculated 91 mg/dL (<100); Potassium 4.7 mmol/L (3.4-5.1); Sodium 140 mmol/L (137-145); Total Protein 6.9 g/dL (6.3-8.2); Triglycerides 135 mg/dL (35-150)
== END ==
LOC: LAB 08:08
PROVIDERS: PCP Family Medicine; Referring Provider Family Medicine; Visit Provider Family Medicine
DX: I25.2 Old myocardial infarction (principal); I21.4 Non-ST elevation (NSTEMI) myocardial infarction; Z13.228 Encounter for screening for other metabolic disorders; Z13.220 Encounter for screening for lipoid disorders
CPT/HCPCS: 36415; 80053; 80061; 85025

== ENCOUNTER → 2024-06-18 11:33 | Outpatient (CLI) | payer OTHER, SELFPAY ==
[2024-06-18 12:52] LABS: Free T4, Direct Thyroxine 0.86 ng/dL (0.78-2.19)
[2024-06-18 13:06] LABS: Thyroid Stimulating Hormone 1.77 uIU/mL (0.47-4.68)
== END ==
PROVIDERS: PCP Family Medicine; Referring Provider Nurse Practitioner; Visit Provider Nurse Practitioner
DX: R00.2 Palpitations (principal)
CPT/HCPCS: 36415; 84439; 84443

== ENCOUNTER → 2024-10-10 08:04 | Outpatient (CLI) | payer OTHER, SELFPAY ==
--- NOTE | 2024-10-10 08:09 | DI.ECHO.S_ITS ---
[facility]+ [facility] : : [id number] : [place] : : [id number] : : Phone: [phone] Echocardiogram Report + + :Name: DAINA ARAMBULA Study Date: 10/10/2024 Height: 62 in : :[facility] ReadingLocation: Weight: 150 lb : : Gender: Female BSA: 1.7 m2 : :: 1970 Age: 54 yrs BP: 149/87 mmHg: :Reason For Study: ASCENDING AORTA DILATION : :Ordering Physician: LORENE, : :ARTEM Performed By: Britton Valdivia : :Referring: ARTEM GLEZ : + + Interpretation Summary The patient was in sinus bradycardia with heart rates between 51-57 bpm during the exam. The left ventricle is normal in size. The ejection fraction is estimated to be 50-55%. There has been no significant change in LVEF since the previous exam. Akinesis of distal inferior wall as well as hypokinetic mid inferior septum, unchanged from the previous study. The right ventricle is normal in size and function. There is mild to moderate tricuspid regurgitation. Previously mild TR. The right ventricular systolic pressure is estimated to be at least 23 mmHg based on an estimated right atrial pressure of 3 mm Hg. The ascending aorta is moderately enlarged. 4.5 cm in diameter. Previously ranging 4.3 to 4.57 cm. Procedure: A two-dimensional transthoracic echocardiogram with color flow and Doppler was performed. The study quality was technically good. Comparison is made with the echocardiogram of 07/07/2023. The patient was in sinus bradycardia with heart rates between 51-57 bpm during the exam. Left Ventricle: The left ventricle is normal in size. There is normal left ventricular wall thickness. There is no thrombus. The ejection fraction is estimated to be 50-55%. There has been no significant change since the previous exam. Akinesis of distal inferior wall as well as hypokinetic mid inferior septum, unchanged from the previous study. Diastolic parameters suggest a relaxation abnormality of the left ventricle, consistent with probable normal filling pressures. Right Ventricle: The right ventricle is normal in size and function. Atria: The left atrium is mildly dilated. The left atrium has mildly increased in size since the prior echo exam. Right atrial size is normal. There is no Doppler evidence for an interatrial shunt. Mitral Valve: The mitral valve leaflets are mildly calcified. There is trace mitral regurgitation. There has been no significant change since the previous study. Aortic Valve: The aortic valve is trileaflet. The aortic valve opens well. There is no aortic valve stenosis. No aortic regurgitation is present. Tricuspid Valve: The tricuspid valve is normal. There is mild to moderate tricuspid regurgitation. The right ventricular systolic pressure is estimated to be at least 23 mmHg based on an estimated right atrial pressure of 3 mm Hg. Pulmonic Valve: The pulmonic valve leaflets are thin and pliable; valve motion is normal. There is mild pulmonic regurgitation. Great Vessels: The aortic root is normal size. The ascending aorta is moderately enlarged. The pulmonary artery is normal size. The IVC is of normal diameter and collapses greater than 50% with a sniff. This suggests a low right atrial pressure of 3 mm Hg. Pericardium/ Pleura There is no pericardial effusion. There is no pleural effusion. MMode/2D Measurements & Calculations LVIDd: 4.8 cm LVOT diam: 1.9 cm LVIDs: 3.4 cm Ao root diam: 3.9 cm FS: 29.8 % asc Aorta Diam: 4.5 cm EPSS: 0.89 cm Ao Arch Diam (Prox Trans): 2.0 cm IVSd: 0.73 cm LVPWd: 0.70 cm LV villasenor. diameter/BSA (cm/m^2): 2.9 LV sys. diameter/BSA (cm/m^2): 2.0 LA A2 area: 21.9 cm2 RA long axis: 4.8 cm LA A4 area: 19.2 cm2 RA area: 15.7 cm2 LA length (vol): 5.7 cm RA vol: 44.2 ml LA vol: 62.4 ml RA : 26.1 ml/m2 LA vol index: 36.9 ml/m2 IVC diam: 1.9 cm RVD1 (basal): 3.0 cm RVD2 (mid): 2.2 cm TAPSE: 2.2 cm Doppler Measurements & Calculations Ao V2 max: 135.8 cm/sec LVOT Max Baldev: 104.7 cm/sec Ao V2 mean: 94.6 cm/sec LV V1 max P.4 mmHg Ao max P.4 mmHg LV V1 VTI: 25.8 cm Ao mean P.9 mmHg MELISSA(I,D): 2.2 cm2 Ao V2 VTI: 33.8 cm MELISSA(V,D): 2.2 cm2 sev ratio: 0.76 MELISSA indexed to BSA (cm^2/m^2): 1.3 MV E max baldev: 53.5 cm/sec TR max baldev: 226.3 cm/sec MV A max baldev: 65.4 cm/sec TR max P.5 mmHg MV E/A: 0.82 PA V2 max: 54.5 cm/sec Med Peak E' Baldev: 5.1 cm/sec PA V2 mean: 41.7 cm/sec E/E' med: 10.4 PA mean P.76 mmHg Lat Peak E' Baldev: 9.6 cm/sec PA pr(Accel): 41.3 mmHg E/E' lat: 5.6 E/e' average: 8.0 MV dec time: 0.20 sec SV(LVOT): 73.4 ml Reading Physician:06:27 PM
[2024-10-10 09:33] LABS: Alanine Aminotransferase 17 IU/L (<35); Albumin 4.2 g/dL (3.5-5.0); Albumin Globulin Ratio 1.7 (1.0-2.8); Alkaline Phosphatase 84 U/L (38-126); Aspartate Aminotransferase 29 IU/L (14-36); BUN Creatinine Ratio 21.4 (6-22); Bilirubin Total 0.7 mg/dL (0.2-1.3); Blood Urea Nitrogen 15 mg/dL (7-17); Calcium 9.3 mg/dL (8.4-10.2); Carbon Dioxide 24 mmol/L (22-32); Chloride 107 mmol/L (98-107); Cholesterol 196 mg/dL (140-199); Estimated Glomerular Filt Rate > 60 mL/min (>60); Globulin 2.5 g/dL (1.7-4.1); Glucose 100 mg/dL (70-100); HDL Cholesterol 72 mg/dL (40-60); HEMOLYSIS < 15 (0-50); LDL Cholesterol Calculated 92 mg/dL (<100); Potassium 4.6 mmol/L (3.4-5.1); Sodium 139 mmol/L (137-145); Total Protein 6.7 g/dL (6.3-8.2); Triglycerides 158 mg/dL (35-150)
== END ==
PROVIDERS: PCP Family Medicine; Referring Provider Internal Medicine Cardiovascular Disease; Visit Provider Internal Medicine Cardiovascular Disease
DX: I07.1 Rheumatic tricuspid insufficiency (principal); I77.810 Thoracic aortic ectasia; I77.89 Other specified disorders of arteries and arterioles; E78.2 Mixed hyperlipidemia; I10 Essential (primary) hypertension
CPT/HCPCS: 36415; 80053; 80061; 82088; 83735; 83835; 93306

== ENCOUNTER → 2024-10-10 14:51 | Outpatient (CLI) | payer OTHER, SELFPAY ==
--- NOTE | 2024-10-10 14:52 | DI.MG.S_ITS ---
MM screening mammo BI: 10/10/2024. BI-RADS: 1 CLINICAL: 54-year old female for bilateral screening mammogram. Tyrer-Cuzick lifetime risk of 7.0%. No personal or first-degree family history of breast cancer. PRIOR EXAMS 05/16/2023, 08/14/2020, 09/07/2018, 11/23/2016, 11/27/2015, 11/21/2015. MAMMOGRAPHY TECHNIQUE: 2D and 3D (tomosynthesis) digital mammographic views obtained, with additional images as needed for full coverage. Current study was also evaluated with a Computer Aided Detection (CAD) system. DENSITY B. There are scattered areas of fibroglandular density. MAMMOGRAPHY FINDINGS Bilateral: No suspicious mass, asymmetry, microcalcification, or other abnormality seen. IMPRESSION: * No evidence of malignancy. RECOMMENDATIONS Bilateral * Annual screening mammography. OVERALL ASSESSMENT CATEGORY BI-RADS-1: Negative. The [employer] recommends annual screening mammography beginning at age 40 for women with average risk of breast cancer. ELECTRONICALLY SIGNED: Mireya Pablo M.D. on 10/10/2024 at 04:40:02 PM PT Interpreting Station ID: [id number]
== END ==
LOC: MAMMO 14:52
PROVIDERS: PCP Family Medicine; Referring Provider Family Medicine; Visit Provider Family Medicine
DX: Z12.31 Encounter for screening mammogram for malignant neoplasm of breast (principal)
CPT/HCPCS: 77063; 77067